=== PATIENT | male | born 1950 | race Caucasian/White ===

== ENCOUNTER 2019-11-02 14:42 | Emergency (ER) | payer MEDICARE, SELFPAY ==
--- NOTE | ~2019-11-02 | CT_ITS ---
EXAMINATION: CT cervical spine wo con DATE: 11/02/2019 15:59 INDICATION: Fall with head injury TECHNIQUE: Computed tomography (CT) of the cervical spine was performed without intravenous contrast. Automated exposure control and iterative reconstruction technique were employed. The dose-length pro duct was 501.02 mGy-cm. COMPARISON: None FINDINGS: Alignment is normal. Vertebral body heights are normal. No fracture. Anterior fusion across the sharif ns of the severely narrowed C3-C4 disc space as well as across the left C3-C4 facet joints. Additiona l severe disc height loss at C4-C5, C5-C6 and C6-C7. Moderate disc height loss at C7-T1, T1-T2 and T2 -T3. Mild disc height loss at C2-C3. Cervical soft tissues are unremarkable. Visualized airway and ap ices of lungs are clear. The following disc levels are specifically discussed: C2-C3: Disc is mildly bulging. There is mild right and moderate left uncovertebral joint osteoarthrit is. There is moderate right and severe left facet joint osteoarthritis. There is no neural foraminal stenosis. There is no central canal stenosis. C3-C4: Mild hypertrophic change along the margins of the fused disc space and uncovertebral joints. T he left facet joint is fused with moderate hypertrophic changes. There is mild right facet joint oste oarthritis. There is mild left neural foraminal stenosis. There is mild central canal stenosis. C4-C5: Posterior disc osteophyte complex. There is severe bilateral uncovertebral joint osteoarthriti s. There is moderate right and severe left facet joint osteoarthritis. There is mild to moderate bila teral neural foraminal stenosis. There is mild central canal stenosis. C5-C6: Posterior disc osteophyte complex. There is severe bilateral uncovertebral joint osteoarthriti s. There is moderate bilateral facet joint osteoarthritis. There is also moderate bilateral neural fo raminal stenosis. There is mild to moderate central canal stenosis. C6-C7: Posterior disc osteophyte complex. There is severe bilateral uncovertebral joint osteoarthriti s. There is mild to moderate bilateral facet joint osteoarthritis. There is mild bilateral neural for aminal stenosis. There is mild central canal stenosis. C7-T1: The disc does not extend beyond the endplate margin. There is mild bilateral uncovertebral funmi nt osteoarthritis. There is moderate right and severe left facet joint osteoarthritis. There is mild left neural foraminal stenosis. There is no central canal stenosis. IMPRESSION: 1. Severe cervical spondylosis. No acute osseous abnormality. Reviewed, dictated and finalized at location A. [employer]
--- NOTE | ~2019-11-02 | CT_ITS ---
EXAMINATION: CT brain wo con DATE: 11/02/2019 15:58 INDICATION: Fall with head injury TECHNIQUE: Computed tomography (CT) of the head was performed without intravenous contrast. Sagittal and coronal reconstructions were performed. The mA was adjusted according to patient size. Iterative reconstruction technique was employed. The dose-length product was 605.33 mGy-cm. COMPARISON: head CT dated 06/05/2013 FINDINGS: No fracture. No acute intracranial hemorrhage, acute infarction or abnormal extra axial fluid collect ion. There is mild scattered white matter hypoattenuation consistent with chronic small vessel ischem ic disease. Symmetric prominence of the sulci consistent with mild age-appropriate diffuse cerebral v olume loss. Ventricles are normal and symmetric. No mass/mass effect. Moderate mucosal thickening in the bilateral ethmoid sinuses. The orbits and mastoid air cells are normal. Mild intracranial calcifi ed cerebral atherosclerosis is noted at the carotid siphons. IMPRESSION: 1. No fracture or acute intracranial process. 2. Chronic age-related changes including mild diffuse volume loss and mild scattered white matter hyp oattenuation consistent with chronic small vessel ischemic disease. Reviewed, dictated and finalized at location A. [employer]ATHOLOGY TEACHER IMPRESSION: 1. No fracture or acute intracranial process. 2. Chronic age-related changes including mild diffuse volume loss and mild scat tered white matter hypoattenuation consistent with chronic small vessel ischemi c disease.
[2019-11-02 15:07] VITALS: BP 190/83; PULSE 62; RESP 16; TEMP 36.3; O2SAT 98
--- NOTE | 2019-11-02 15:52 | ED.GENADULT ---
HPI - General Adult General Chief complaint: Neck Pain/Injury Stated complaint: neck pain, fall four days ago Time Seen by Provider: 11/02/19 15:05 Source: patient Mode of arrival: ambulatory Limitations: no limitations History of Present Illness HPI narrative: Patient is a 69-year-old male who presents to emergency department for evaluation of head injury that occurred a few days prior patient was on the second rung of a ladder when he lost balance falling striking the right side of the head since had right posterior acceptable head and neck pain worse with activity and movement denies other injuries or complaints has not been seen for this presents per private vehicle in no distress denies anticoagulant use Related Data Home Medications Medication Instructions Recorded Confirmed allopurinol 11/02/19 pantoprazole PO 11/02/19 Allergies Allergy/AdvReac Type Severity Reaction Status Date / Time No Known Allergies Allergy Verified 11/02/19 15:19 Review of Systems Review of Systems: All systems reviewed & are unremarkable except as noted in HPI and below PMFSH Social History Social History (Updated 11/02/19 @ 15:58 by Torsten Cutler PA-C) Smoking status: Never smoker Gender identity (if verbalized by the patient): Male Exam Narrative: Exam Narrative: GENERAL: Well-appearing, well-nourished, and in no acute distress. HEAD: Normocephalic, atraumatic. EYES: PERRLA and EOMI. ENT: Nares clear, no rhinorrhea or epistaxis. Mucous membranes moist. Oropharynx without tonsillar hypertrophy exudate or other lesions. CHEST: Clear to auscultation. No respiratory distress. No wheezes rales or rhonchi HEART: Regular rate and rhythm. No murmur heard. EXTREMITIES: Normal range of motion. No edema. Tenderness at the base of the skull and right paraspinal cervical musculature no midline cervical thoracic or lumbar tenderness no deformity noted SKIN: Warm, dry, no rash. NEURO: No focal deficits. Alert and oriented x3. Cranial nerves II through XII grossly intact PSYCH: Normal mood and affect. Course Course Emergency Course: Patient in the room in no distress aware of case findings treatment plan and diagnosis Vital Signs Vital signs: Vital Signs Temperature 97.3 F L 11/02/19 15:07 Pulse Rate 62 11/02/19 15:07 Respiratory Rate 16 11/02/19 15:07 Blood Pressure 190/83 H 11/02/19 15:07 Pulse Oximetry 98 11/02/19 15:07 Temperature 97.3 F L 11/02/19 15:07 Pulse Rate 62 11/02/19 15:07 Respiratory Rate 16 11/02/19 15:07 Blood Pressure 190/83 H 11/02/19 15:07 Pulse Oximetry 98 11/02/19 15:07 Medical Decision Making MDM Narrative Medical decision making narrative: Patients injury or pain is consistent with musculoskeletal etiology. No signs of neurological or vascular compromise on exam. Compartments and tisues are soft without signs of compartment syndrome. Pain is felt appropriate for further evaluation on an outpatient basis. Vital Signs Vital Signs: Vital Signs Temperature 97.3 F L 11/02/19 15:07 Pulse Rate 62 11/02/19 15:07 Respiratory Rate 16 11/02/19 15:07 Blood Pressure 190/83 H 11/02/19 15:07 Pulse Oximetry 98 11/02/19 15:07 Temperature 97.3 F L 11/02/19 15:07 Pulse Rate 62 11/02/19 15:07 Respiratory Rate 16 11/02/19 15:07 Blood Pressure 190/83 H 11/02/19 15:07 Pulse Oximetry 98 11/02/19 15:07 Discharge Plan Discharge Clinical Impression: Strain of neck muscle Patient Disposition: Home, Self-Care Condition: Stable Instructions: Antibiotic Form, Neck Pain (ED) Additional Instructions: Follow up with your primary care doctor in 5-7 days for re-evaluation. Go to ER for worsening pain, vision changes, nausea/vomiting, fever/chills, weakness, chest pain, shortness of breath, numbness/tingling, slurred speech, difficulty walking, change in mental status etc. or any other concerns. Take any prescribed medications as direct
[2019-11-02 16:41] VITALS: BP 130/80; PULSE 80; RESP 20; TEMP 36.8; O2SAT 99
== END 2019-11-02 16:42 | disposition home or self-care (01) ==
PROVIDERS: Emergency Provider Emergency Medicine; PCP Family Medicine
DX: S16.1XXA Strain of muscle, fascia and tendon at neck level, initial encounter (principal); W11.XXXA Fall on and from ladder, initial encounter
CPT/HCPCS: 70450; 72125; 99284

== ENCOUNTER → 2020-12-13 08:17 | Outpatient (CLI) | payer MEDICARE, BC, SELFPAY ==
--- NOTE | ~2020-12-13 | XR_ITS ---
EXAMINATION: XR knee RT 3V EXAM DATE: 12/13/2020 08:37 INDICATION: Right knee pain. States twisted knee twice recently. Initial encounter. TECHNIQUE: Three projections of the right knee. There is no prior study for comparison. FINDINGS: No evidence osteochondral defect or joint body in the right knee joint. There are no acut e fractures or dislocations identified. There is no subcutaneous gas. Small joint effusion. There are no radiopaque foreign bodies. Mild lateral patellar subluxation, could indicate medial retinacul ar laxity. IMPRESSION: 1. XR knee RT 3V exam without acute osseous findings. 2. Mild lateral patellar subluxation. 3. Small joint effusion. Reviewed, dictated and finalized at location A.
== END ==
PROVIDERS: PCP Family Medicine; Visit Provider Physician Assistant
DX: S83.011A Lateral subluxation of right patella, initial encounter (principal); M25.461 Effusion, right knee
CPT/HCPCS: 73562

== ENCOUNTER 2022-01-26 07:06 | Emergency (ER) | payer MEDICARE, SELFPAY ==
[2022-01-26 07:16] VITALS: BP 193/126; PULSE 76; RESP 16; TEMP 36.6; O2SAT 97
--- NOTE | 2022-01-26 07:55 | ED.WOUNDLAC ---
HPI - Wound/Laceration General Chief Complaint: Wound/Laceration Stated Complaint: laceration Time Seen by Provider: 01/26/22 07:20 History of Present Illness HPI narrative: 72-year-old with a history of hypertension, gout, GERD here with complaints of bleeding from his left lower extremity started few minutes ago while he was sitting at the coffee table. Patient denies any trauma patient states that he was bleeding a lot had to call 911. Related Data Allergies Allergy/AdvReac Type Severity Reaction Status Date / Time No Known Allergies Allergy Verified 01/26/22 07:19 Review of Systems Review of Systems: All systems reviewed & are unremarkable except as noted in HPI and below Constitutional: Constitutional: Reports no additional constitutional complaints Eyes: Eyes: Reports no additional eye complaints ENT: Reports system reviewed and no additional complaints, except as documented Cardiovascular: Cardiovascular: Reports no additional cardiovascular complaints Respiratory: Respiratory: Reports no additional respiratory complaints Gastrointestinal: Gastrointestinal: Reports no additional gastrointestinal complaints Musculoskeletal: Musculoskeletal: Reports as per HPI Integumentary/Breasts: Skin/Breast: Reports system reviewed and no additional complaints, except as docu Neurologic: Reports system reviewed and no additional complaints, except as documented PMFSH Past Medical History Medical History Gastroesophageal reflux H/O: gout Hyperlipidemia Hypertension Social History Social History Smoking status: Never smoker Gender identity (if verbalized by the patient): Male Exam Narrative: GENERAL: Well-appearing, well-nourished, and in no acute distress. HEAD: Normocephalic, atraumatic. EYES: PERRLA and EOMI.. NECK: Supple. CHEST: Clear to auscultation. No respiratory distress. HEART: Regular rate and rhythm. No murmur heard. Normal peripheral pulses.. EXTREMITIES: Normal range of motion. No edema. bleeding from a spider vein on the left lower leg SKIN: Warm, dry, no rash. NEURO: No focal deficits. Alert and oriented x3. PSYCH: Normal mood and affect. Course Vital Signs Vital signs: Vital Signs Temperature 36.6 C 01/26/22 07:16 Pulse Rate 76 01/26/22 07:16 Respiratory Rate 16 01/26/22 07:16 Blood Pressure 193/126 H 01/26/22 07:16 Pulse Oximetry 97 01/26/22 07:16 Temperature 36.9 C 01/26/22 08:09 Pulse Rate 73 01/26/22 08:09 Respiratory Rate 20 01/26/22 08:09 Blood Pressure 185/105 H 01/26/22 08:09 Pulse Oximetry 96 01/26/22 08:09 Procedures Other Procedure Procedure 1: Other Procedure: Small superficial varicose vein was actively bleeding pressure applied still continues to bleed area was cleaned and it was cauterized with silver nitrate stick which stopped the bleeding pressure dressing applied Discharge Plan Discharge Clinical Impression: Bleeding from varicose veins of left lower extremity Patient Disposition: Home, Self-Care Condition: Stable Instructions: Puncture Wound (ED) Additional Instructions: do not take the dressing off for one day, continue your home medications, Prescriptions: No Action pantoprazole 40 mg tablet,delayed release (DR/EC) See Rx Instructions .ROUTE .COMPLEX Qty: 90 1RF Dose Instruction: TAKE 1 TABLET BY MOUTH EVERY DAY Rx Instructions: TAKE 1 TABLET BY MOUTH EVERY DAY diclofenac sodium 1 % gel 2 g topical QID Qty: 100 0RF allopurinol 100 mg tablet See Rx Instructions .ROUTE .COMPLEX Qty: 60 3RF Dose Instruction: TAKE 1 TABLET BY MOUTH TWICE A DAY Rx Instructions: TAKE 1 TABLET BY MOUTH TWICE A DAY Follow-up/Referrals: Elidia Hightower MD [Primary Care Provider] - Time of Disposition: 08:30
[2022-01-26 08:09] VITALS: BP 185/105; PULSE 73; RESP 20; TEMP 36.9; O2SAT 96
== END 2022-01-26 08:40 | disposition home or self-care (01) ==
PROVIDERS: Emergency Provider Family Medicine; PCP Family Medicine
DX: I83.892 Varicose veins of left lower extremity with other complications (principal); E78.5 Hyperlipidemia, unspecified; I10 Essential (primary) hypertension; M10.9 Gout, unspecified; K21.9 Gastro-esophageal reflux disease without esophagitis
CPT/HCPCS: 12001; 99282

== ENCOUNTER 2023-10-05 08:53 | Emergency (ER) | payer MEDICARE, SELFPAY ==
[2023-10-05 09:07] VITALS: BP 120/79; PULSE 79; RESP 16; TEMP 36.5; O2SAT 96
--- NOTE | 2023-10-05 09:14 | ED.EXTPRO ---
HPI - Extremity Problem General Chief complaint: Extremity Problem,Nontraumatic Stated complaint: R LOWER LEG SWELLING/REDNESS Time Seen by Provider: 10/05/23 09:06 Source: patient and RN notes reviewed Mode of arrival: ambulatory Limitations: no limitations History of Present Illness HPI Narrative: Patient presents today complaining of redness, swelling, and tenderness to the right lower leg x2 weeks. Denies injury or trauma. Currently rates his pain 7/10. History of gout for which he takes daily allopurinol. Related Data Allergies Allergy/AdvReac Type Severity Reaction Status Date / Time No Known Allergies Allergy Verified 10/05/23 09:03 Review of Systems Review of Systems: CONSTITUTIONAL: Denies body aches, fever, chills, or sweats. EYES: Denies visual changes, redness, or discharge. ENT: Denies rhinorrhea, congestion, sore throat, or otalgia. CARDIOVASCULAR: Denies chest pain, palpitations, or edema. RESPIRATORY: Denies cough or dyspnea. GASTROINTESTINAL: Denies abdominal pain, nausea, vomiting, or diarrhea. GENITOURINARY: Denies dysuria or hematuria. SKIN: Denies rash, itching, or wounds. MUSCULOSKELETAL: + right lower leg pain, redness, swelling NEUROLOGIC: Denies headache, numbness, tingling, or weakness. PSYCH: Denies depression or anxiety. [facility] Past Medical History Medical History Essential hypertension Gastroesophageal reflux H/O: gout Hyperlipidemia Hypertension Prediabetes Surgical History Surgical History H/O knee surgery History of throat surgery Family History Family History Sibling Diabetes mellitus Father Cerebrovascular accident Mother Heart disease Social History Social History Smoking status: Never smoker Second hand tobacco smoke exposure: No Alcohol intake: never Substance use: never Substance use type: does not use Lack of Transportation: No Lack of Food: Never True Current Housing: I Have Housing Concerned About Future Housing: No Difficulty Paying Gas/Electric Bills: No Difficulty Paying for Meds: No Currently Unemployed: No Education: Bachelor's Degree Difficulty w/ Childcare or Family Care: No Living arrangements: with family Occupation/Education: retired Gender identity (if verbalized by the patient): Male Sexual Orientation (if Verbalized by the Patient): Straight or Heterosexual Spiritual care concerns: No Agree to blood products: Yes Comments At time of signature, I have reviewed and agree with nursing past medical, surgical, social and family history unless otherwise noted. Please see nursing chart for further information. There is no relevant family history pertinent to the presenting complaint Exam Narrative: GENERAL: Well-appearing, well-nourished, and in no acute distress. HEAD: Normocephalic, atraumatic. EYES: EOMI. No redness or drainage. Conjunctivae normal. ENT: Mucous membranes pink and moist. NECK: Normal AROM. CHEST: No respiratory distress. EXTREMITIES: Right lower le+ pitting edema in the right lower leg, extending to the foot. Tenderness anteriorly. Jamul hue through the entire lower leg and foot with comparison to the left. Distal sensation intact. Capillary refill normal. Pedal pulse normal. SKIN: Warm, dry, no rash. Capillary refill normal. Normal skin turgor. NEURO: No focal deficits. Alert and oriented x3. Gait steady. PSYCH: Normal affect. No signs of depression or anxiety. Course Course Level of Care: Express Care Visit Vital Signs Vital signs: Vital Signs Temperature 97.7 F 10/05/23 09:07 Pulse Rate 79 10/05/23 09:07 Respiratory Rate 16 10/05/23 09:07 Blood Pressure 120/79 10/05/23 09:0
== END 2023-10-05 09:26 | disposition short-term general hospital (02) ==
PROVIDERS: Emergency Provider Nurse Practitioner; PCP Family Medicine
DX: M79.661 Pain in right lower leg (principal); I10 Essential (primary) hypertension; K21.9 Gastro-esophageal reflux disease without esophagitis; M10.9 Gout, unspecified; E78.5 Hyperlipidemia, unspecified; R73.03 Prediabetes
CPT/HCPCS: 99212; G0463

== ENCOUNTER 2023-10-05 09:53 | Emergency (ER) | payer MEDICARE, SELFPAY ==
[2023-10-05] VITALS (11 sets, daily range): BP systolic 120–180; BP diastolic 71–88; PULSE 69–75; RESP 16–25; TEMP 36.7; O2SAT 97–100
--- NOTE | ~2023-10-05 | US_ITS ---
EXAMINATION: US venous doppler LE RT DATE: 10/05/2023 14:42 INDICATION: Right lower limb pain and swelling. TECHNIQUE: Grayscale ultrasound images without and with compression and Doppler ultrasound images of the right lower extremity veins were obtained. COMPARISON: None. FINDINGS: The visualized portions of right common femoral vein, profunda (deep) femoral vein, femoral vein, pop liteal vein, peroneal veins, posterior tibial veins, and greater saphenous vein outflow are patent. IMPRESSION: 1. No deep venous thrombosis. Reviewed, dictated and finalized at location A. [employer]
--- NOTE | 2023-10-05 13:51 | ED.LOWEXIN ---
HPI - Extremity Injury (Lower) General Chief Complaint: Wound/Laceration Stated Complaint: RLE swelling/pain Time Seen by Provider: 10/05/23 13:37 Source: patient Mode of arrival: ambulatory Limitations: no limitations History of Present Illness HPI Narrative: 73 YEARS OLD WHITE MALE DROVE HIMSELF TO THE EMERGENCY ROOM COMPLAINING OF REDNESS AND PAIN AND SWELLING OF THE RIGHT LOWER LEG BELOW THE KNEE STARTED 2 WEEKS AGO. HE DENIES ANY FEVER, CHILLS, NAUSEA, VOMITING, TRAUMA, SHORTNESS OF BREATH OR CHEST PAIN. HISTORY OF HYPERTENSION AND HYPERLIPIDEMIA. PATIENT LIVES WITH FAMILY. Related Data Allergies Allergy/AdvReac Type Severity Reaction Status Date / Time No Known Allergies Allergy Verified 10/05/23 09:59 Review of Systems Review of Systems: All systems reviewed & are unremarkable except as noted in HPI and below PMFSH Past Medical History Medical History Essential hypertension Gastroesophageal reflux H/O: gout Hyperlipidemia Hypertension Prediabetes Surgical History Surgical History H/O knee surgery History of throat surgery Family History Family History Sibling Diabetes mellitus Father Cerebrovascular accident Mother Heart disease Social History Social History Smoking status: Never smoker Second hand tobacco smoke exposure: No Alcohol intake: never Substance use: never Substance use type: does not use Lack of Transportation: No Lack of Food: Never True Current Housing: I Have Housing Concerned About Future Housing: No Difficulty Paying Gas/Electric Bills: No Difficulty Paying for Meds: No Currently Unemployed: No Education: Bachelor's Degree Difficulty w/ Childcare or Family Care: No Living arrangements: with family Occupation/Education: retired Gender identity (if verbalized by the patient): Male Sexual Orientation (if Verbalized by the Patient): Straight or Heterosexual Spiritual care concerns: No Agree to blood products: Yes Exam Narrative: GENERAL APPEARANCE: WELL-DEVELOPED, WELL-NOURISHED SKIN: NORMAL COLOR HEAD: NORMOCEPHALIC, NONTRAUMATIC EYES: CLEAR CONJUNCTIVA ENT: OROPHARYNX NORMAL, EARS NORMAL, NOSE NORMAL NECK: SUPPLE, NONTENDER CHEST AND RESPIRATORY: AIRWAY PATENT, NO RESPIRATORY DISTRESS, NO ACCESSORY MUSCLE USE HEART: REGULAR RATE/RHYTHM ABDOMEN: SOFT, NONTENDER, NO ORGANOMEGALY, QUIET BOWEL SOUNDS VASCULAR: NORMAL PERIPHERAL PULSES, NORMAL CAPILLARY REFILL. MUSCULOSKELETAL: RIGHT LOWER LEG BELOW THE KNEE SHOWED DIFFUSE SWELLING, 2+ EDEMA, DIFFUSE ERYTHEMA, WARMTH, NO DISCHARGE NEUROLOGIC: ALERT AND ORIENTED ?3, INSPECTOR TIMERS IS NORMAL TESTED, NO GROSS MOTOR DEFICIT Course Vital Signs Vital signs: Vital Signs Temperature 36.7 C 10/05/23 10:31 Pulse Rate 73 10/05/23 10:31 Respiratory Rate 16 10/05/23 10:31 Blood Pressure 137/79 10/05/23 10:31 Pulse Oximetry 97 10/05/23 10:31 Temperature 36.7 C 10/05/23 10:31 Pulse Rate 70 10/05/23 15:01 Respiratory Rate 20 10/05/23 15:01 Blood Pressure 120/72 10/05/23 15:01 Pulse Oximetry 100 10/05/23 15:01 MDM - Extremity Injury (Lower) Lab Data 10/05/23 14:54 10/05/23 14:54 Labs: Lab Results 10/05/23 10/05/23 10/05/23 Range/Units 14:54 14:54 14:54 WBC 8.0 (4.5-10.0) K/mm3 RBC 4.70 (4.6-6.20) M/mm3 Hgb 13.7 L (14.0-18.0) g/dL Hct 43.4 (42.0-52.0) % MCV 92.3 (80-100) fl MCH 29
[2023-10-05 15:02] LABS: Basophils Absolute Auto 0.1 K/mm3 (0.0-0.1); Basophils Percent Auto 0.8 % (0.2-1.2); Eosinophils Absolute Auto 0.2 K/mm3 (0-0.3); Eosinophils Percent Auto 2.1 % (0-4.4); Hematocrit 43.4 % (42.0-52.0); Hemoglobin 13.7 g/dL (14.0-18.0); Immature Granulocyte Absolute 0.02 K/mm3 (0.00-0.031); Immature Granulocyte Percent A 0.3 % (0-0.5); Lymphocytes Absolute Auto 1.66 K/mm3 (0.9-3.2); Lymphocytes Percent Auto 20.8 % (18.3-44.2); Mean Corpuscular HGB Conc 31.6 g/dl (32-36); Mean Corpuscular Hemoglobin 29.1 pg (26-34); Mean Corpuscular Volume 92.3 fl (80-100); Mean Platelet Volume 10.6 fl (7.4-10.4); Neutrophils Absolute Auto 5.1 K/mm3 (1.3-6.7); Platelet Count Result 227 k/mm3 (150-375)
[2023-10-05 15:12] LABS: Partial Thromboplastin Time 36.9 SECONDS (22.3-36.8); Prothrombin Time 13.7 Seconds (11.1-14.7)
[2023-10-05 15:13] LABS: Alanine Aminotransferase 35 U/L (6-50); Albumin Level 4.3 g/dL (3.5-5.1); Alkaline Phosphatase 82 U/L (38-126); Anion Gap 5 mmol/L (8-16); Aspartate Amino Transferase 42 U/L (17-59); Bilirubin,Total 1.7 mg/dL (0.2-1.3); Blood Urea Nitrogen 26 mg/dL (9-20); Calcium 9.2 mg/dL (8.4-10.2); Carbon Dioxide 34 mmol/L (22-30); Chloride 101 mmol/L (98-107); Estimated CRCL calculation 63 ml/min; Estimated Glomerular Filt Rate 60; Glucose 106 mg/dL (65-110); Potassium 3.5 mmol/L (3.4-5.0); Sodium 140 mmol/L (137-145)
== END 2023-10-05 15:55 | disposition home or self-care (01) ==
PROVIDERS: Emergency Provider Emergency Medicine; PCP Family Medicine
DX: L03.115 Cellulitis of right lower limb (principal); R60.0 Localized edema; I10 Essential (primary) hypertension; E78.5 Hyperlipidemia, unspecified; R73.03 Prediabetes; M10.9 Gout, unspecified; K21.9 Gastro-esophageal reflux disease without esophagitis
CPT/HCPCS: 36415; 80053; 85025; 85610; 85730; 93971; 99284